=== PATIENT | male | born 1965 | race African-American/Black ===

== ENCOUNTER → 2019-05-13 | Outpatient (CLI) | payer OTHER ==
--- NOTE | 2019-05-14 11:09 | PCVCIMAG ---
APPROVED REPORT Study performed: 05/13/2019 14:30:38 EXAM: Comprehensive 2D, Doppler, and color-flow Echocardiogram Patient Location: Echo lab Status: routine BSA: 2.17 HR: 57 bpmBP: 140/80 mmHg Rhythm: Bradycardia Other Information Study Quality: Adequate Indications Abnormal ECG 2D Dimensions IVSd: 9.69 (7-11mm) LVDd: 49.86 mm PWd: 9.78 (7-11mm)Ascending Ao: 32.92 (22-36mm) LVDs: 36.05 (25-40mm) Left Atrium: 34.97 (27-40mm) Aortic Root: 31.79 mm LV Single Plane 4CH: 48.77 % LV Single Plane 2CH: 57.21 % Biplane EF: 53.2 % Volumes Left Atrial Volume (Systole) Single Plane 4CH: 67.89 mLSingle Plane 2CH: 78.13 mL LA ESV Index: 34.00 mL/m2 Aortic Valve AoV Peak Olvin.: 1.48 m/s AO Peak Gr.: 8.76 mmHgLVOT Max P.14 mmHg LVOT Max V: 0.89 m/s Mitral Valve E/A Ratio: 1.4 MV Decel. Time: 313.33 ms MV E Max Olvin.: 0.77 m/s MV A Olvin.: 0.56 m/s IVRT: 100.35 ms Pulmonary Valve PV Peak Olvin.: 1.01 m/sPV Peak Gr.: 4.08 mmHg Pulmonary Vein P Vein S: 0.36 m/sP Vein A: 0.32 m/s P Vein D: 0.50 m/sP Vein A Dur.: 121.1 msec P Vein S/D Ratio: 0.72 Tricuspid Valve TR Peak Olvin.: 2.59 m/s TR Peak Gr.: 26.86 mmHg TV Vmax: 0.64 m/s Left Ventricle The left ventricle is normal size. There is normal LV segmental wall motion. There is normal left ventricular wall thickness. Left ventricular systolic function is within lower limits of normal. LVEF is 50-55%. Grade II - pseudonormal filling dynamics. Right Ventricle The right ventricle is normal size. The right ventricular systolic function is normal. Atria The left atrium size is normal. The right atrium size is normal. Aortic Valve The aortic valve is normal in structure. Trace aortic regurgitation. There is no aortic valvular stenosis. Mitral Valve The mitral valve is normal in structure. Trace mitral regurgitation. No evidence of mitral valve stenosis. Tricuspid Valve The tricuspid valve is normal in structure. Mild tricuspid regurgitation with PAP of 34 mmHg. Pulmonic Valve The pulmonary valve is normal in structure. Mild pulmonic regurgitation. Great Vessels The aortic root is normal in size. IVC is normal in size and collapses >50% with inspiration. Pericardium There is no pericardial effusion. There is no pleural effusion. <Conclusion> The left ventricle is normal size. LVEF is 50-55%. The aortic valve is normal in structure. Trace aortic regurgitation. The mitral valve is normal in structure. Trace mitral regurgitation. The tricuspid valve is normal in structure. Mild tricuspid regurgitation with PAP of 34 mmHg. The pulmonary valve is normal in structure. Mild pulmonic regurgitation. There is no pericardial effusion.
== END | disposition home or self-care (01) ==
LOC: PCVCIMAG 15:32
PROVIDERS: ATTEND Internal Medicine
DX: I08.8 Other rheumatic multiple valve diseases (principal); R94.31 Abnormal electrocardiogram [ECG] [EKG]
CPT/HCPCS: 93306